=== PATIENT | female | born 1935 | race Caucasian/White ===

== ENCOUNTER 2017-06-05 07:46 | Emergency (ER) | payer MEDICARE, OTHER ==
[~2017-06-05] VITALS: Ht 160 cm; Wt 72.6 kg
[~2017-06-05 07:46] MED LIST: BACTRIM DS TAB1 EACH PO; IBUPROFEN600 MG PO; SIMVASTATIN40 MG PO
[2017-06-05] MEDS ORDERED: PARACETAMOL PO (07:59)
[2017-06-05] MEDS ORDERED: GABAPENTIN300 MG PO (08:01)
== END 2017-06-05 09:50 | disposition home or self-care (01) ==
LOC: ED 07:46
DX: S32.019A Unspecified fracture of first lumbar vertebra, initial encounter for closed fracture (principal); I10 Essential (primary) hypertension; E78.5 Hyperlipidemia, unspecified; W10.9XXA Fall (on) (from) unspecified stairs and steps, initial encounter; Z90.49 Acquired absence of other specified parts of digestive tract; Z90.710 Acquired absence of both cervix and uterus; Z88.5 Allergy status to narcotic agent; Z79.899 Other long term (current) drug therapy
CPT/HCPCS: 72131; 99284

== ENCOUNTER 2022-09-30 09:21 | Emergency (ER) | payer OTHER, MEDICARE ==
[~2022-09-30] VITALS: Ht 160 cm; Wt 72.6 kg
[~2022-09-30 09:21] MED LIST changes: +GABAPENTIN300 MG PO; +PARACETAMOL PO
[2022-09-30] MEDS ORDERED: CEPHALEXIN500 M1 PO (12:01)
--- NOTE | 2022-09-30 12:32 | EKG ---
[facility] [address] [facility] [place] [id number] Signed Normal sinus rhythm Normal ECG When compared with ECG of 30-SEP-2022 09:26, (Unconfirmed) T wave inversion less evident in Inferior leads Confirmed by GARTH MOJICA MD ([id number] on 09/30/2022 12:32:26 PM Electronically Signed By: GARTH MOJICA MD 09/30/22 1232 PATIENT NAME: SHIRIN SAPP Electrocardiogram DATE OF : 31 PHYSICIAN: GARTH MOJICA MD REPORT #: [id number] REPORT IS CONFIDENTIAL AND NOT TO BE RELEASED WITHOUT AUTHORIZATION
== END 2022-09-30 12:11 | disposition home or self-care (01) ==
LOC: ED 09:21
DX: R55 Syncope and collapse (principal); I12.9 Hypertensive chronic kidney disease with stage 1 through stage 4 chronic kidney disease, or unspecified chronic kidney disease; N18.9 Chronic kidney disease, unspecified; N39.0 Urinary tract infection, site not specified; Z88.5 Allergy status to narcotic agent
CPT/HCPCS: 36415; 70450; 71045; 80053; 81001; 84484; 85025; 87088; 93005; 93010; J7040